=== PATIENT | female | born 1990 | race Hispanic/Latino ===

== ENCOUNTER 2016-08-30 09:38 | Emergency (ER) | payer SELFPAY ==
[2016-08-30] MEDS ORDERED: MORPHINE ONE (10:11)
[2016-08-30 10:12] VITALS: BP 113/73
[2016-08-30 11:34] LABS: Bilirubin,Urine NEG (Negative); Blood,Urine NEG (Negative); Ketones,Urine NEG (Negative); Leukocyte Esterase,Urine LG (Negative); Mucus,Urine 3+ /HPF; Nitrite,Urine NEG (Negative); Urobilinogen,Urine < 2.0 mg/dL (<2.0)
[2016-08-30] MEDS ORDERED: XYLOCAINE 1% MPF 5 mL INFILTRATI ONE (13:17)
[2016-08-30] MEDS ORDERED: ROCEPHIN IM ONE (13:17)
[2016-08-30] MEDS ORDERED: ZITHROMAX PO ONE (13:17)
--- NOTE | 2016-08-30 13:36 | Emergency Department Report ---
ED Female HPI - General Chief complaint: Urogenital-Female Stated complaint: ABD PAIN Time Seen by Provider: 08/30/16 12:48 Source: patient Mode of arrival: Ambulatory Limitations: No Limitations - History of Present Illness Initial comments: 26F PMH Asthma, sulfa allergy (angioedema) p/ x2 weeks of intermittent vaginal discharge, yellowish, whitish in nature. states she is experiencing dysruia. Denies any fever or chills, no nausea or vomiting, no difficulty voiding urine. States she currently has 1 sexual partner unprotected. Denies hx of stds. Also reports increased urinary frequency. MD Complaint: vaginal discharge, dysuria, pelvic pain, possible STD Onset/Timin -: week(s) Location: suprapubic Severity: moderate Improves with: none Worsens with: urination Associated Symptoms: vaginal discharge - Related Data Sexually active: Yes Previous Rx's Medication Instructions Recorded Last Taken Type Ferrous Sulfate [Feosol 325 MG tab] 325 mg PO BID #120 tablet 09/16/15 Unknown Rx Ibuprofen [Motrin 600 MG tab] 600 mg PO Q6H #30 tablet 09/16/15 Unknown Rx Ciprofloxacin HCl [Ciprofloxacin 500 mg PO Q12H #14 tab 08/30/16 Unknown Rx TAB] Nitrofurantoin [place]/M-Cryst 100 mg PO Q12HR #14 capsule 08/30/16 Unknown Rx [Macrobid CAP] Allergies Allergy/AdvReac Type Severity Reaction Status Date / Time Sulfa (Sulfonamide Allergy Anaphylaxis Verified 04/08/15 14:32 Antibiotics) ED Review of Systems ROS: Stated complaint: ABD PAIN Other details as noted in HPI Constitutional: denies: chills, fever Eyes: denies: eye pain, eye discharge, vision change ENT: denies: ear pain, throat pain Respiratory: denies: cough, shortness of breath, wheezing Cardiovascular: denies: chest pain, palpitations Endocrine: no symptoms reported Gastrointestinal: denies: abdominal pain, nausea, diarrhea Genitourinary: dysuria, discharge. denies: urgency Musculoskeletal: denies: back pain, joint swelling, arthralgia Skin: denies: rash, lesions Neurological: denies: headache, weakness, paresthesias Psychiatric: denies: anxiety, depression Hematological/Lymphatic: denies: easy bleeding, easy bruising ED Past Medical Hx - Past Medical History Previous Medical History?: Yes Hx Hypertension: No Hx Congestive Heart Failure: No Hx Diabetes: No Hx Deep Vein Thrombosis: No Hx Renal Disease: No Hx Sickle Cell Disease: No Hx Seizures: No Hx Asthma: No Hx COPD: No Hx HIV: No Additional medical history: Vaginal delivery 09-15-15 - Surgical History Past Surgical History?: No - Social History Smoking Status: Never Smoker Substance Use Type: Alcohol, Other - Medications Home Medications: Home Medications Medication Instructions Recorded Confirmed Last Taken Type Ferrous Sulfate [Feosol 325 MG tab] 325 mg PO BID #120 tablet 09/16/15 Unknown Rx Ibuprofen [Motrin 600 MG tab] 600 mg PO Q6H #30 tablet 09/16/15 Unknown Rx Ciprofloxacin HCl [Ciprofloxacin 500 mg PO Q12H #14 tab 08/30/16 Unknown Rx TAB] Nitrofurantoin [place]/M-Cryst 100 mg PO Q12HR #14 capsule 08/30/16 Unknown Rx [Macrobid CAP] ED Physical Exam - General Limitations: No Limitations General appearance: alert, in no apparent distress - Head Head exam: Present: atraumatic, normocephalic - Eye Eye exam: Present: normal appearance, PERRL, EOMI - ENT ENT exam: Present: mucous membranes moist - Neck Neck exam: Present: normal inspection - Respiratory Respiratory exam: Present: normal lung sounds bilaterally. Absent: respiratory distress - Cardiovascular Cardiovascular Exam: Present: regular rate, normal rhythm. Absent: systolic murmur, diastolic murmur, rubs, gallop - GI/Abdominal GI/Abdominal exam: Present: soft, normal bowel sounds - Rectal Rectal exam: Present: normal inspection - External exam: Present: normal external exam Speculum exam: Present: normal speculum exam, vaginal discharge (yellowish vaginal discharge) Bi-manual exam: Present: normal bi-manual exam - Extremities Exam Extremities exam: Present: normal inspection - Back Exam Back exam: Present: normal inspection - Neurological Exam Neurological exam: Present: alert, oriented X3 - Psychiatric Psychiatric exam: Present: normal affect, normal mood - Skin Skin exam: Present: warm, dry, intact, normal color. Absent: rash ED Course Vital Signs 08/30/16 10:06 Temperature 98.2 F Pulse Rate 64 Respiratory 18 Rate Blood Pressure 113/73 O2 Sat by Pulse 100 Oximetry ED Medical Decision Making - Medical Decision Making A/P: Cystitis, cervicitis 1-pt states she does not have money for medicine, in order to cover her UTI.cystisi i chose ciprofloxacin as this medicine cn be obtained free or at low cost at many local pharmacy chains or [facility]. 2-azithromycin and ceftriaxone given in the ER for empiric treatment of cervicitis. No clinical signs or symptoms of PID no cervical motion tenderness or adnexal tenderness on clinical pelvic exam. 3-wet prep WNL 4- referral to primary care and [facility] 5- I advised patient to return to the ED if she develops any fevers chills abdominal pain nausea or vomiting or flank pain which she does not currently have at this time Critical care attestation.: If time is entered above; I have spent that time in minutes in the direct care of this critically ill patient, excluding procedure time. ED Disposition Clinical Impression: Cystitis, Cervicitis Disposition: DISCHARGED TO HOME OR SELFCARE Is pt being admited?: No Does the pt Need Aspirin: No Condition: Stable Instructions: Cervicitis (ED), Urinary Tract Infection in Women (ED) Prescriptions: Ciprofloxacin HCl [Ciprofloxacin TAB] 500 mg PO Q12H #14 tab Nitrofurantoin [place]/M-Cryst [Macrobid CAP] 100 mg PO Q12HR #14 capsule Referrals: [facility] [Provider Group] - 3-[address] [facility] [Outside] - 3-5 Days Forms: Accompanied Note, STI Treatment and Prevention, Work/School Release Form (ED) Time of Disposition: 14:09
[2016-08-30] MEDS ORDERED: MORPHINE IV ONE (18:59)
== END 2016-08-30 14:21 | disposition home or self-care (01) ==
LOC: ED 09:38
DX: N30.90 Cystitis, unspecified without hematuria (principal); N72 Inflammatory disease of cervix uteri; Z88.2 Allergy status to sulfonamides
CPT/HCPCS: 81001; 81025; 87086; 87210; 87591; 96372; 99283; J0696; J2270